=== PATIENT | female | born 1980 | race Caucasian/White ===

== ENCOUNTER → 2018-02-02 | Outpatient (CLI) | payer OTHER ==
[~2018-02-02] MED LIST: ADAL20KI SQ; GADOBUTROL 10 MMOL/10 ML VIAL IV ONE
--- NOTE | 2018-02-02 15:24 | KCIC ---
MRI Brain with and without contrast History: Abnormal outside facility MRI, pituitary/sellar mass Technique: Multiplanar, multi sequential pre and postcontrast MR imaging was performed of the brain. Contrast: 6 cc Gadavist Comparison: None Findings: There is mild motion. Overall size of pituitary gland is within normal limits. Infundibulum is in the midline. Pituitary gland enhances fairly homogeneously, no discrete mass identified. There is no evidence of recent infarct or cytotoxic edema. The ventricles, sulci, and cisterns are within normal limits in size and configuration. There is no significant midline shift, intraaxial mass effect, or focal abnormal extra-axial fluid collection. There is no significant signal abnormality of the brain parenchyma. There is no nodular parenchymal or leptomeningeal enhancement. There is preservation of the major intracranial flow-voids at the skull base. The cerebellar tonsils are normal in location. There is no significant abnormality of the pineal gland. There is mild bilateral ethmoid air cell mucosal thickening. There is right maxillary sinus mucous retention cyst about 2.4 cm, another focus about 1.1 cm. The mastoid air cells are aerated. There is preserved marrow signal of the clivus. Impression: 1. There is no significant intracranial abnormality. No sellar/pituitary mass is identified. Electronically signed by: Willy Arnett MD (02/02/2018 3:20 PM) [id number]
== END | disposition home or self-care (01) ==
LOC: KCIC MRI 10:50
PROVIDERS: ATTEND Family Medicine
DX: E23.6 Other disorders of pituitary gland (principal); J34.1 Cyst and mucocele of nose and nasal sinus
CPT/HCPCS: 70553; A9585